=== PATIENT | female | born 1950 | race Caucasian/White ===

== ENCOUNTER 2017-09-26 10:15 | Day surgery (SDC) | payer BC, MEDICARE ==
[2017-09-26] MEDS ORDERED: Propofol 1,000 MG/100 ML SDV ONE (14:05)
[2017-09-26] MEDS ORDERED: Midazolam 1 MG/ML 5 ML SDV ONE (14:05)
[2017-09-26 15:33] VITALS: BP 160/83
--- NOTE | 2017-09-26 22:06 | OR ---
DATE OF OPERATION: 09/26/2017 PREOPERATIVE DIAGNOSIS: Surveillance colonoscopy, prior history of polyps. POSTOPERATIVE DIAGNOSIS: Normal colonoscopy. OPERATION: Surveillance colonoscopy. COMPLICATIONS: None. DRAINS: None. SPECIMENS: None. ESTIMATED BLOOD LOSS: Zero. ANESTHESIA: General propofol anesthesia. INDICATION: Ms. Sandoval is a 66-year-old female, status post gastric bypass, here for a surveillance colonoscopy. She does have a prior history of polyps. The above-mentioned procedure was explained. The risks, benefits, and complications were explained. The patient understood and agreed and was brought to the operating room. DESCRIPTION OF PROCEDURE: The patient was brought to the operating room, placed in the left lateral decubitus position on the operating room table. Satisfactory general propofol anesthesia was administered. We began by performing a rectal examination which was within normal limits. I then placed the endoscope by finger introduction into the rectum and subsequently advanced this to the level of the cecum. Cecum was identified by the appendiceal orifice, ileocecal valve, and cecal strap. Next, careful evaluation of mucosa was performed on withdrawal. There were no telangiectasias, no polyps or neoplastic growths or diverticula. Retroflexion was performed in the rectum which was within normal limits. I then subsequently decompressed the colon and subsequently removed the endoscope from the rectum. The patient tolerated the procedure well. There were no complications. Instrument count was correct. The patient was awoken in the OR and taken to PACU for recovery. Recommend followup colonoscopy in 5 years due to increased risk of polyps. RICH/RAYNE /[id number]
== END 2017-09-26 15:36 | disposition home or self-care (01) ==
LOC: LB.SDS 10:15
PROVIDERS: ATTEND Surgery
DX: Z12.11 Encounter for screening for malignant neoplasm of colon (principal); Z86.010 Personal history of colon polyps
CPT/HCPCS: 45378; J2250; J7040; J3490; J7030